=== PATIENT | male | born 1965 | race Caucasian/White ===

== ENCOUNTER 2024-07-22 06:17 | Day surgery (SDC) | payer BC, SELFPAY | END 2024-07-22 10:08 | disposition home or self-care (01) | LOC: GI 06:17 | PROVIDERS: ATTENDING PHYSICIAN Internal Medicine Gastroenterology | DX: Z12.11 Encounter for screening for malignant neoplasm of colon (principal); K64.8 Other hemorrhoids; D49.0 Neoplasm of unspecified behavior of digestive system; D12.5 Benign neoplasm of sigmoid colon; K29.50 Unspecified chronic gastritis without bleeding; K63.5 Polyp of colon; Z83.719 Family history of colon polyps, unspecified | CPT/HCPCS: 45380; 88305 ==